=== PATIENT | female | born 1970 | race American Indian/Alaskan Native ===

== ENCOUNTER 2021-01-04 12:04 | Emergency (ER) | payer SELFPAY ==
[2021-01-04] MEDS ORDERED: ONDANSETRON 4 MG/2 ML INJ IV ONE (13:30)
[2021-01-04] MEDS ORDERED: MORPHINE 4 MG/1 ML INJ IV ONE (13:30)
[2021-01-04 13:42] LABS: Basophils % (Auto) 0.5 % (0.0-1.8); Eosinophils # (Auto) 0.1 K/mm3 (0.0-0.4); Eosinophils % (Auto) 2.1 % (0.0-4.3); Hematocrit 41.1 % (30.3-42.9); Hemoglobin 14.4 gm/dl (10.1-14.3); Lymphocytes # (Auto) 2.3 K/mm3 (1.2-5.4); Lymphocytes % (Auto) 37.9 % (13.4-35.0); Mean Corpuscular HGB Conc 35 % (30-34); Mean Corpuscular Volume 95 fl (79-97); Monocytes # (Auto) 0.5 K/mm3 (0.0-0.8); Monocytes % (Auto) 7.9 % (0.0-7.3); Platelet Count 196 K/mm3 (140-440); Red Blood Count 4.31 M/mm3 (3.65-5.03); Red Cell Distribution Width 13.9 % (13.2-15.2)
[2021-01-04 13:59] LABS: Alanine Aminotransferase 13 units/L (7-56); Albumin 4.3 g/dL (3.9-5); BUN/Creatinine Ratio 10; Blood Urea Nitrogen 9 mg/dL (7-17); Calcium 9.3 mg/dL (8.4-10.2); Hemolysis Index 28
[2021-01-04 14:05] LABS: Bacteria,Urine 1+ /HPF (Negative); Bilirubin,Urine NEG (Negative); Blood,Urine LG (Negative); Color,Urine Yellow (Yellow); Mucus,Urine FEW /HPF
--- NOTE | 2021-01-04 14:56 | Cat Scan Report ---
CT ABDOMEN AND PELVIS WITH CONTRAST INDICATION / CLINICAL INFORMATION: acute mid/ lower abd pain. TECHNIQUE: Axial CT images were obtained through the abdomen and pelvis after 100 mL of Omnipaque [address] scans at this location are performed using CT dose reduction for [employer]ARA by means of automated exposure control. COMPARISON: None available. FINDINGS: LOWER CHEST: No significant abnormality. LIVER: No significant abnormality. GALLBLADDER: No significant abnormality. BILE DUCTS: No significant abnormality. PANCREAS: No significant abnormality. SPLEEN: No significant abnormality. ADRENALS: No significant abnormality. RIGHT KIDNEY / URETER: No significant abnormality. LEFT KIDNEY / URETER: No significant abnormality. STOMACH / SMALL BOWEL: No significant abnormality. COLON: No significant abnormality. APPENDIX: No significant abnormality. PERITONEUM: No free fluid. No free air. No fluid collection. LYMPH NODES: No significant adenopathy. AORTA / ARTERIES: Mild atherosclerotic calcification without acute abnormality. IVC / VEINS: No significant abnormality. URINARY BLADDER: No significant abnormality. REPRODUCTIVE ORGANS: Small bilateral ovarian cysts/follicles. Retroflexed uterus ADDITIONAL FINDINGS: Small fat-containing umbilical hernia and rectus diastasis. SKELETAL SYSTEM: Degenerative changes of the spine. No destructive osseous lesion. IMPRESSION: 1. No acute CT abnormality to account for patient's symptoms. 2. Incidental findings as above. Signer Name: Junaid Burris MD Signed: 01/04/2021 2:52 PM Workstation Name: [email or web address]
--- NOTE | 2021-01-04 15:20 | Emergency Department Report ---
ED General Adult HPI - General Chief complaint: Nausea/Vomiting/Diarrhea Stated complaint: ABD PAINS Time Seen by Provider: 01/04/21 12:15 Source: patient Mode of arrival: Ambulatory Limitations: No Limitations - History of Present Illness Initial comments: 50-year-old -Citizen Of [place] female patient presents with complaints of sudden onset of abdominal pain and nausea and vomiting prior to arrival today. She reports her pain is a 9/10 in severity in her abdomen. She denies any hematemesis/coffee-ground emesis, diarrhea/constipation, fever/chills/sweats, chest pain, shortness of breath, or cough. She states the pain is in her mid lower abdomen. She describes it as a extreme cramping. Patient also states that she believes she is having an episode of food poisoning because her symptoms began after eating old mashed potatoes. No prior medical history per patient. Past abdominal surgical history includes a Severity scale (0 -10): 10 - Related Data Previous Rx's Medication Instructions Recorded Last Taken Type Dicyclomine [Bentyl] 20 mg PO QID PRN #15 tablet 01/04/21 Unknown Rx Famotidine [Pepcid] 20 mg PO BID PRN 10 Days #20 tablet 01/04/21 Unknown Rx Ondansetron [Zofran Odt] 4 mg PO Q8HR PRN #12 tab.rapdis 01/04/21 Unknown Rx Sulfamethoxazole/Trimethoprim 1 each PO BID 5 Days #10 tablet 01/04/21 Unknown Rx [Bactrim DS TAB] Allergies Allergy/AdvReac Type Severity Reaction Status Date / Time No Known Allergies Allergy Unverified 01/04/21 12:09 ED Review of Systems ROS: Stated complaint: ABD PAINS Other details as noted in HPI Constitutional: denies: chills, diaphoresis, fever, malaise, weakness Respiratory: denies: cough, shortness of breath Cardiovascular: denies: chest pain Gastrointestinal: abdominal pain, nausea, vomiting. denies: diarrhea, co nstipation, hematemesis, melena, hematochezia Genitourinary: denies: urgency, dysuria, frequency, hematuria, discharge Musculoskeletal: denies: back pain Neurological: denies: headache ED Past Medical Hx - Social History Smoking Status: Current Every Day Smoker - Medications Home Medications: Home Medications Medication Instructions Recorded Confirmed Last Taken Type Dicyclomine [Bentyl] 20 mg PO QID PRN #15 tablet 01/04/21 Unknown Rx Famotidine [Pepcid] 20 mg PO BID PRN 10 Days #20 tablet 01/04/21 Unknown Rx Ondansetron [Zofran Odt] 4 mg PO Q8HR PRN #12 tab.rapdis 01/04/21 Unknown Rx Sulfamethoxazole/Trimethoprim 1 each PO BID 5 Days #10 tablet 01/04/21 Unknown Rx [Bactrim DS TAB] ED Physical Exam - General Limitations: No Limitations General appearance: alert, in no apparent distress - Head Head exam: Present: atraumatic, normocephalic - Eye Eye exam: Present: normal appearance - Respiratory Respiratory exam: Present: normal lung sounds bilaterally. Absent: respiratory distress - Cardiovascular Cardiovascular Exam: Present: regular rate, normal rhythm - GI/Abdominal GI/Abdominal exam: Present: soft, tenderness (Periumbilical and lower abdomen), normal bowel sounds. Absent: distended, rebound, rigid - Back Exam Back exam: Present: normal inspection - Neurological Exam Neurological exam: Present: alert, oriented X3 - Psychiatric Psychiatric exam: Present: normal affect, normal mood - Skin Skin exam: Present: warm, dry, intact, normal color. Absent: rash ED Course Vital Signs 01/04/21 01/04/21 01/04/21 12:27 13:10 13:19 Temperature 98.2 F 97.6 F 98.1 F Pulse Rate 100 H 87 81 Respiratory 18 14 12 Rate Blood Pressure 122/85 117/63 Blood Pressure 133/81 [Right] O2 Sat by Pulse 97 99 99 Oximetry 01/04/21 16:57 Temperature 97.8 F Pulse Rate 76 Respiratory 18 Rate Blood Pressure Blood Pressure 126/83 [Right] O2 Sat by Pulse 99 Oximetry ED Medical Decision Making - Lab Data Result diagrams: 01/04/21 12:44 01/04/21 12:44 Lab Results 01/04/21 01/04/21 01/04/21 Range/Units 12:44 12:44 13:10 WBC 5.9 (4.5-11.0) K/mm3 RBC 4.31 (3.65-5.03) M/mm3 Hgb 14.4 H (10.1-14.3) gm/dl Hct 41.1 (30.3-42.9) % MCV 95 (79-97) fl MCH 34 H (28-32) pg MCHC 35 H (30-34) % RDW 13.9 (13.2-15.2) % Plt Count 196 (140-440) K/mm3 Lymph % (Auto) 37.9 H (13.4-35.0) % [place] % (Auto) 7.9 H (0.0-7.3) % Eos % (Auto) 2.1 (0.0-4.3) % Baso % (Auto) 0.5 (0.0-1.8) % Lymph # (Auto) 2.3 (1.2-5.4) K/mm3 [place] # (Auto) 0.5 (0.0-0.8) K/mm3 Eos # (Auto) 0.1 (0.0-0.4) K/mm3 Baso # (Auto) 0.0 (0.0-0.1) K/mm3 Seg Neutrophils % 51.6 (40.0-70.0) % Seg Neutrophils # 3.1 (1.8-7.7) K/mm3 Sodium 136 L (137-145) mmol/L Potassium 4.7 (3.6-5.0) mmol/L Chloride 104.2 (98-107) mmol/L Carbon Dioxide 21 L (22-30) mmol/L Anion Gap 16 mmol/L BUN 9 (7-17) mg/dL Creatinine 0.9 (0.6-1.2) mg/dL Estimated GFR > 60 ml/min BUN/Creatinine Ratio 10 % Glucose 128 H (65-100) mg/dL Calcium 9.3 (8.4-10.2) mg/dL Total Bilirubin 0.30 (0.1-1.2) mg/dL AST 12 (5-40) units/L ALT 13 (7-56) units/L Alkaline Phosphatase 103 (35-129) units/L Total Protein 7.3 (6.3-8.2) g/dL Albumin 4.3 (3.9-5) g/dL Albumin/Globulin Ratio 1.4 % Lipase 29 (13-60) units/L Urine Color Yellow (Yellow) Urine Turbidity Slightly-cloudy (Clear) Urine pH 5.0 (5.0-7.0) Ur Specific [place] 1.021 (1.003-1.030) Urine Protein 30 mg/dl (Negative) mg/dL Urine Glucose (UA) Neg (Negative) mg/dL Urine Ketones Neg (Negative) mg/dL Urine Blood Lg (Negative) Urine Nitrite Neg (Negative) Urine Bilirubin Neg (Negative) Urine Urobilinogen 4.0 (<2.0) mg/dL Ur Leukocyte Esterase Neg (Negative) Urine WBC (Auto) 34.0 H (0.0-6.0) /HPF Urine RBC (Auto) 166.0 (0.0-6.0) /HPF U Epithel Cells (Auto) 22.0 H (0-13.0) /HPF Urine Bacteria (Auto) 1+ (Negative) /HPF Urine Mucus Few /HPF Urine Yeast (Budding) Few /HPF - Radiology Data Radiology results: report reviewed CT ABDOMEN AND PELVIS WITH CONTRAST INDICATION / CLINICAL INFORMATION: acute mid/ lower abd pain. TECHNIQUE: Axial CT images were obtained through the abdomen and pelvis after 100 mL of Omnipaque [address] scans at this location are performed using CT dose reduction for [employer] by means of automated exposure control. COMPARISON: None available. FINDINGS: LOWER CHEST: No significant abnormality. LIVER: No significant abnormality. GALLBLADDER: No significant abnormality. BILE DUCTS: No significant abnormality. PANCREAS: No significant abnormality. SPLEEN: No significant abnormality. ADRENALS: No significant abnormality. RIGHT KIDNEY / URETER: No significant abnormality. LEFT KIDNEY / URETER: No significant abnormality. STOMACH / SMALL BOWEL: No significant abnormality. COLON: No significant abnormality. APPENDIX: No significant abnormality. PERITONEUM: No free fluid. No free air. No fluid collection. LYMPH NODES: No significant adenopathy. AORTA / ARTERIES: Mild atherosclerotic calcification without acute abnormality. IVC / VEINS: No significant abnormality. URINARY BLADDER: No significant abnormality. REPRODUCTIVE ORGANS: Small bilateral ovarian cysts/follicles. Retroflexed uterus ADDITIONAL FINDINGS: Small fat-containing umbilical hernia and rectus diastasis. SKELETAL SYSTEM: Degenerative changes of the spine. No destructive osseous lesion. IMPRESSION: 1. No acute CT abnormality to account for patient's symptoms. 2. Incidental findings as above. - Medical Decision Making 50-year-old -Citizen Of [place] female patient presents with complaints of sudden onset of abdominal pain and nausea and vomiting prior to arrival today. She reports her pain is a 9/10 in severity in her abdomen. She denies any hematemesis/coffee-ground emesis, diarrhea/constipation, fever/chills/sweats, chest pain, shortness of breath, or cough. She states the pain is in her mid lower abdomen. She describes it as a extreme cramping. Patient also states that she believes she is having an episode of food poisoning because her symptoms began after eating old mashed potatoes. No prior medical history per patient. Past abdominal surgical history includes a No significant abnormalities noted on CBC, CMP, lipase, or CT of the abdomen. Patient's pain has been relieved with meds given here in the ED. No vomiting observed here in the ED. UA shows pyuria-we'll treat with Bactrim. Recommend patient follows up with PCP in 3 days. She is well-appearing, her vitals are normal, she is stable for discharge home. Strict return precautions were discussed in great detail with patient who verbalizes understanding. Critical care attestation.: If time is entered above; I have spent that time in minutes in the direct care of this critically ill patient, excluding procedure time. ED Disposition Clinical Impression: Acute abdominal pain, Nausea & vomiting, Pyuria Disposition: 01 HOME / SELF CARE / HOMELESS Is pt being admited?: No Condition: Stable Instructions: Viral Gastroenteritis, Adult, Abdominal Pain, Adult, Urinary Tract Infection, Adult, [id number] Prescriptions: Sulfamethoxazole/Trimethoprim [Bactrim DS TAB] 1 each PO BID 5 Days #10 tablet Dicyclomine [Bentyl] 20 mg PO QID PRN #15 tablet PRN Reason: abdominal cramping Famotidine [Pepcid] 20 mg PO BID PRN 10 Days #20 tablet PRN Reason: abdominal pain Ondansetron [Zofran Odt] 4 mg PO Q8HR PRN #12 tab.rapdis PRN Reason: Nausea Referrals: CARLY HAWKINS [Other] - 3-5 Days
[2021-01-04] MEDS ORDERED: DICYCLOMINE 20 MG TAB PO ONE (15:26)
[2021-01-04] MEDS ORDERED: FAMOTIDINE 20 MG TAB PO ONE (15:27)
[2021-01-04 16:59] VITALS: BP 126/83
== END 2021-01-04 16:57 | disposition home or self-care (01) ==
LOC: ED 12:04
DX: R10.33 Periumbilical pain (principal); R11.2 Nausea with vomiting, unspecified; R82.81 Pyuria; F17.200 Nicotine dependence, unspecified, uncomplicated; Z79.899 Other long term (current) drug therapy
CPT/HCPCS: 36415; 74177; 80053; 81001; 83690; 85025; 87086; 96374; 96375; 99284; J2270; J2405; Q9967